=== PATIENT | male | born 1960 | race Caucasian/White ===

== ENCOUNTER 2020-04-10 15:00 | Outpatient (RCR) | payer BC | END 2020-04-10 15:30 | disposition still patient (30) | LOC: PT 15:00 | DX: M75.122 Complete rotator cuff tear or rupture of left shoulder, not specified as traumatic (principal); Z98.890 Other specified postprocedural states ==

== ENCOUNTER 2022-09-29 08:00 | Outpatient (RCR) | payer BC | END 2022-10-27 | disposition home or self-care (01) | LOC: PT | DX: M17.12 Unilateral primary osteoarthritis, left knee (principal) ==

== ENCOUNTER 2023-11-18 10:00 | Outpatient (RCR) | payer BC ==
[2023-11-24] MEDS ORDERED: FLOMAX0.4 MG PO (10:09)
[2023-11-24] MEDS ORDERED: LISINOPRIL10 MG PO (10:09)
[2023-11-24] MEDS ORDERED: ROXICODONE 55 MG/TAB PO (10:09)
[2023-11-24] MEDS ORDERED: GOOD NEIGHBOR325 MG PO (10:10)
[2023-11-24] MEDS ORDERED: TYLENOL 8 HOUR650 M1 PO (10:33)
== END 2023-11-25 | disposition home or self-care (01) ==
LOC: PT
DX: M17.11 Unilateral primary osteoarthritis, right knee (principal); Z96.651 Presence of right artificial knee joint